=== PATIENT | female | born 1995 | race Caucasian/White ===

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

== ENCOUNTER → 2021-01-25 | Outpatient (CLI) | payer OTHER ==
[~2021-01-25] MED LIST changes: +BASAGLAR INSULIN SQ; +BIAXIN 250MG T250 MG PO; +HUMALOG100 UNIT/1 SQ; +IMITREX100 MG PO
== END ==
LOC: EMI 01-22 13:00
DX: G44.89 Other headache syndrome (principal); G43.009 Migraine without aura, not intractable, without status migrainosus
CPT/HCPCS: 70551

== ENCOUNTER → 2021-02-04 | Outpatient (CLI) | payer OTHER ==
[2021-02-04 17:50] LABS: RED BLOOD COUNT 4.99 M/UL (4.00-5.10); WHITE BLOOD COUNT 8.2 K/UL (4.5-11.0)
[2021-02-04 18:08] LABS: BUN/CREATININE RATIO 27 (0-10)
== END ==
LOC: LAB 16:20
PROVIDERS: Nurse Practitioner Family; Physician Assistant
DX: R59.0 Localized enlarged lymph nodes (principal)
CPT/HCPCS: 80053; 80061; 82043; 83036; 84439; 84443; 85025; 86665; 86777; 86778

== ENCOUNTER → 2021-02-26 | Outpatient (CLI) | payer OTHER | LOC: EXRD 02-06 08:30 | DX: R59.0 Localized enlarged lymph nodes (principal) | CPT/HCPCS: 76536 ==

== ENCOUNTER 2021-04-18 16:13 | Inpatient (IN) | payer OTHER ==
[2021-04-18 17:27] LABS: HEMOGLOBIN 11.6 gm/dl (12.3-15.3); RED BLOOD COUNT 4.41 M/UL (4.00-5.10); WHITE BLOOD COUNT 13.9 K/UL (4.5-11.0)
[2021-04-18 17:50] LABS: BUN/CREATININE RATIO 17 (0-10)
[2021-04-19 06:53] LABS: HEMOGLOBIN 10.4 gm/dl (12.3-15.3); WHITE BLOOD COUNT 15.2 K/UL (4.5-11.0)
[2021-04-19] MEDS ORDERED: IMITREX100 MG PO (06:59)
[2021-04-19] MEDS ORDERED: ADMELOG100 UNIT/1 SC (07:00)
[2021-04-19 07:13] LABS: BUN/CREATININE RATIO 19 (0-10)
--- NOTE | 2021-04-19 15:05 | NUR ---
Dr. Benavidez notified of urine culture results of gram negative emile and temp of 102. No new orders at this time.
[2021-04-20 05:48] LABS: HEMOGLOBIN 9.4 gm/dl (12.3-15.3); RED BLOOD COUNT 3.68 M/UL (4.00-5.10); WHITE BLOOD COUNT 13.2 K/UL (4.5-11.0)
[2021-04-20 06:22] LABS: BUN/CREATININE RATIO 31 (0-10)
[2021-04-21 07:39] LABS: HEMOGLOBIN 8.7 gm/dl (12.3-15.3); RED BLOOD COUNT 3.44 M/UL (4.00-5.10)
[2021-04-21 07:41] LABS: WHITE BLOOD COUNT 8.4 K/UL (4.5-11.0)
[2021-04-21 08:03] LABS: BUN/CREATININE RATIO 37 (0-10)
[2021-04-22 03:48] LABS: WHITE BLOOD COUNT 9.2 K/UL (4.5-11.0)
[2021-04-22 03:51] LABS: HEMOGLOBIN 11.1 gm/dl (12.3-15.3); RED BLOOD COUNT 4.37 M/UL (4.00-5.10)
[2021-04-22 04:18] LABS: BUN/CREATININE RATIO 25 (0-10)
[2021-04-22] MEDS ORDERED: LEVOFLOXACIN750 MG PO (08:00)
== END 2021-04-22 11:19 | disposition home or self-care (01) | DRG 872 ==
LOC: ER1 16:13 → M/S 21:17 → CDU 21:17 → M/S 21:37
PROVIDERS: Family Medicine; Internal Medicine; Physician Assistant; ADMIT Internal Medicine
DX: A41.51 Sepsis due to Escherichia coli [E. coli] (principal); N10 Acute pyelonephritis; E86.0 Dehydration; E10.65 Type 1 diabetes mellitus with hyperglycemia; Z20.822 Contact with and (suspected) exposure to COVID-19; D64.9 Anemia, unspecified; G43.909 Migraine, unspecified, not intractable, without status migrainosus; Z87.440 Personal history of urinary (tract) infections; Z79.4 Long term (current) use of insulin; Z88.1 Allergy status to other antibiotic agents; Z88.8 Allergy status to other drugs, medicaments and biological substances; Z83.3 Family history of diabetes mellitus
CPT/HCPCS: 36415; 80048; 80053; 81001; 82009; 82728; 82962; 83540; 83550; 83690; 84703; 85025; 86140; 87040; 87077; 87086; 87186; 96374; 96375; 96376; 99285; G0378; J1335; J1756; J1885; J1956; J2270; J2405; J2550; J7030; Q9967; U0002

== ENCOUNTER 2022-03-27 21:26 | Emergency (ER) | payer OTHER ==
[~2022-03-27 21:26] MED LIST changes: +ADMELOG100 UNIT/1 SC; +LEVOFLOXACIN750 MG PO
[2022-03-28] MEDS ORDERED: EPIPEN 2-P0.3 MG/0.3 INJ (01:20)
== END 2022-03-28 01:33 | disposition home or self-care (01) ==
LOC: ER1 21:26
DX: T78.40XA Allergy, unspecified, initial encounter (principal); E10.9 Type 1 diabetes mellitus without complications
CPT/HCPCS: 96365; 96375; 99283; J1100; J1200; J2405

== ENCOUNTER → 2022-04-01 | Outpatient (CLI) | payer OTHER ==
[~2022-04-01] MED LIST changes: +EPIPEN 2-P0.3 MG/0.3 INJ
[2022-04-01 14:28] LABS: BUN/CREATININE RATIO 20 (0-10)
[2022-04-02 11:14] LABS: CREATININE, URINE 48.2 mg/dL (Not Estab.)
== END ==
LOC: LAB 13:25
PROVIDERS: Nurse Practitioner Family
DX: E10.9 Type 1 diabetes mellitus without complications (principal)
CPT/HCPCS: 36415; 80053; 80061; 82043; 82570; 83036; 84443